=== PATIENT | male | born 2000 | race African-American/Black ===

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

== ENCOUNTER 2020-01-15 15:07 | Emergency (ER) | payer MEDICAID ==
--- NOTE | 2020-01-15 15:36 | ER Document Report ---
ED Medical Screen (RME) - General Chief Complaint: Chest Pain Stated Complaint: CHEST PAIN Time Seen by Provider: 01/15/20 15:33 Primary Care Provider: GRABIEL TRUJILLO DO [Primary Care Provider] - Follow up as needed TRAVEL OUTSIDE OF THE [place] IN LAST 30 DAYS: No - HPI Notes: 01/15/20 15:35 Patient is a 19-year-old male no significant past medical history presents complaining of having intermittent sternal chest pain since last night. Patient states that he currently does not have any pain. He did not have any shortness of breath or dyspnea on exertion associated. The pain did not radiate. Denies drug allergies. No other concerns or complaints. No recent illness. Denies any prolonged immobilization, distance travel, recent surgery/trauma, personal cancer history, hormone use, or previous DVT/PE. Denies [place], fever, neck pain, URI, n/v/d, Abd pain, dysuria, back pain, or rash. I have treated and performed a rapid initial assessment of this patient. A comprehensive ED assessment and evaluation of the patient, analysis of test results and completion of medical decision making process will be conducted by additional ED providers. PHYSICAL EXAMINATION: GENERAL: Well-appearing, well-nourished and in no acute distress. A&Ox4. Answers questions appropriately. LUNGS: Breath sounds clear to auscultation bilaterally and equal. No wheezes rales or rhonchi. HEART: Regular rate and rhythm without murmurs, rubs, gallops. Extremities: No cyanosis, clubbing, or edema b/l. Kym negative bilaterally. No lower extremity asymmetry. NEUROLOGICAL: Normal speech, normal gait. PSYCH: Normal mood, normal affect. - Related Data Allergies/Adverse Reactions: No Known Allergies Allergy (Verified 03/05/18 08:13) Past Medical History - Past Medical History Cardiac Medical History: Denies: Hx Atrial Fibrillation, Hx Congestive Heart Failure, Hx Coronary Artery Disease, Hx DVT, Hx Heart Attack, Hx Hypercholesterolemia, Hx Hypertension, Hx Peripheral Vascular Disease, Hx Pulmonary Embolism, Hx Heart Murmur Pulmonary Medical History: Denies: Hx Asthma, Hx Bronchitis, Hx COPD, Hx Pneumonia, Hx Intubation, Hx Respiratory Failure, Hx Sleep Apnea, Hx Tuberculosis Neurological Medical History: Denies: Hx Cerebrovascular Accident, Hx Migraine, Hx Seizures Endocrine Medical History: Denies: Hx Diabetes Mellitus Type 1, Hx Diabetes Mellitus Type 2, Hx Graves' Disease, Hx Hyperthyroidism, Hx Hypothyroidism Renal/ Medical History: Denies: Hx Peritoneal Dialysis Musculoskeltal Medical History: Denies Hx Arthritis - Immunizations Immunizations up to date: Yes Hx Diphtheria, Pertussis, Tetanus Vaccination: Yes Physical Exam - Vital signs Vitals: Temp Pulse Resp BP Pulse Ox 97.7 F 77 18 134/66 H 100 01/15/20 15:28 01/15/20 15:28 01/15/20 15:01/15/20 15:01/15/20 15:28 Course - Vital Signs Vital signs: Temp Pulse Resp BP Pulse Ox 97.7 F 77 18 134/66 H 100 01/15/20 15:28 01/15/20 15:28 01/15/20 15:28 01/15/20 15:28 01/15/20 15:28 Doctor's Discharge - Discharge Referrals: GRABIEL TRUJILLO DO [Primary Care Provider] - Follow up as needed
--- NOTE | 2020-01-15 16:19 | ER Document Report ---
ED General - General Chief Complaint: Chest Pain Stated Complaint: CHEST PAIN Time Seen by Provider: 01/15/20 15:33 Primary Care Provider: GRABIEL TRUJILLO DO [Primary Care Provider] - Follow up as needed Mode of Arrival: Ambulatory Information source: Patient Notes: 19-year-old male presented to ED for intermittent sharp chest pain in the center of the upper chest the last about 2 to 3 seconds at a time since yesterday. He states he does not have any shortness of breath does not have any symptoms except for this sharp substernal pain. At the moment of this exam he does not have any pain at all denies any shortness of breath difficulty breathing and the pain does not radiate anywhere. His only concern is that he is a liver transplant patient. 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 He denies any nausea vomiting cough congestion neck pain headache any other pain. He is alert oriented respirations regular n onlabored speaking in full sentences walks with even steady gait. TRAVEL OUTSIDE OF THE [place] IN LAST 30 DAYS: No - HPI Onset: Yesterday Onset/Duration: Intermittent Quality of pain: Sharp - Very brief Severity: None Pain Level: Denies Associated symptoms: Chest pain - Very brief 3 seconds or less periods of sharp pain intermittently from yesterday to today. denies: Body/muscle aches, Chills, Nonproductive cough, Productive cough, Fever, Nausea, Vomiting, Rhinnorhea, Sinus pain/drainage, Shortness of breath, Sore throat Exacerbated by: Denies Relieved by: Denies Similar symptoms previously: No Recently seen / treated by doctor: Yes - Related Data Allergies/Adverse Reactions: No Known Allergies Allergy (Verified 01/15/20 15:35) Home Medications: prograft. mifort Past Medical History - General Information source: Patient - Social History Smoking Status: Never Smoker Chew tobacco use (# tins/day): No Frequency of alcohol use: None Drug Abuse: None Lives with: Family Family History: None, Reviewed & Not Pertinent Patient has suicidal ideation: No Patient has homicidal ideation: No - Past Medical History Cardiac Medical History: Reports: None Pulmonary Medical History: Reports: None Neurological Medical History: Reports: None Endocrine Medical History: Reports: None Renal/ Medical History: Reports: None Malignancy Medical History: Reports None GI Medical History: Reports: Other - Urea cycle disorder liver transplant Musculoskeletal Medical History: Reports None Skin Medical History: Reports None Psychiatric Medical History: Reports: None Traumatic Medical History: Reports: None Infectious Medical History: Reports: None Past Surgical History: Reports: Other - Liver transplant - Immunizations Immunizations up to date: Yes Hx Diphtheria, Pertussis, Tetanus Vaccination: Yes Review of Systems - Review of Systems Constitutional: No symptoms reported Cardiovascular: Chest pain. denies: Palpitations, Heart racing, Orthopnea, Dyspnea, Syncope, Dizziness, Lightheaded Respiratory: No symptoms reported Gastrointestinal: No symptoms reported Genitourinary: No symptoms reported Male Genitourinary: No symptoms reported Musculoskeletal: No symptoms reported Skin: No symptoms reported Hematologic/Lymphatic: No symptoms reported Neurological/Psychological: No symptoms reported -: Yes All other systems reviewed and negative Physical Exam - Vital signs Vitals: Temp Pulse Resp BP Pulse Ox 97.7 F 77 18 134/66 H 100 01/15/20 15:28 01/15/20 15:28 01/15/20 15:28 01/15/20 15:28 01/15/20 15:28 Interpretation: Normal - General General appearance: Appears well, Alert - HEENT Head: Normocephalic, Atraumatic Eyes: Normal Pupils: PERRL - Respiratory Respiratory status: No respiratory distress Chest status: Nontender Breath sounds: Normal Chest palpation: Normal - Cardiovascular Rhythm: Regular Heart sounds: Normal auscultation Murmur: No Notes: No chest pain at this time patient does have a large scar from his liver transplant just below his chest area with implanted port to the left chest - Abdominal Inspection: Normal Distension: No distension Bowel sounds: Normal Tenderness: Nontender Organomegaly: No organomegaly - Back Back: Normal, Nontender - Extremities General upper extremity: Normal inspection, Nontender, Normal color, Normal ROM, Normal temperature General lower extremity: Normal inspection, Nontender, Normal color, Normal ROM, Normal temperature, Normal weight bearing. No: Kym's sign - Neurological Neuro grossly intact: Yes Cognition: Normal Orientation: AAOx4 Shikha Coma Scale Eye Opening: Spontaneous [place] Coma Scale Verbal: Oriented [place] Coma Scale Motor: Obeys Commands Shikha Coma Scale Total: 15 Speech: Normal Motor strength normal: LUE, RUE, LLE, RLE Sensory: Normal - Psychological Associated symptoms: Normal affect, Normal mood - Skin Skin Temperature: Warm Skin Moisture: Dry Skin Color: Normal Course - Re-evaluation Re-evalutation: 01/15/20 17:11 Discussed labs EKG and chest x-ray with patient after discussing them with Dr. Guzman. He stated the patient could go home. I did give the patient a copy of the EKG lab results and chest x-ray report. He is to take these to his transplant provider for follow-up. Patient verbalized understanding and agreement with treatment plan and patient was discharged home. - Vital Signs Vital signs: Temp Pulse Resp BP Pulse Ox 97.3 F 79 16 117/75 99 01/15/20 17:03 01/15/20 17:03 01/15/20 17:03 01/15/20 17:03 01/15/20 17:03 - Laboratory Result Diagrams: 01/15/20 16:08 01/15/20 16:08 - Diagnostic Test Radiology reviewed: Image reviewed, Reports reviewed Discharge - Discharge Clinical Impression: Chest pain Qualifiers: Chest pain type: unspecified Qualified Code(s): R07.9 - Chest pain, unspecified Condition: Stable Disposition: HOME, SELF-CARE Additional Instructions: CHEST PAIN OF UNCLEAR CAUSE: The exact cause of your chest pain isn't clear. Fortunately, there is no evidence of a dangerous medical condition. Further testing may be required to find the source of the pain. Most often, we find that this pain is coming from the chest wall -- the muscles or rib joints in the chest. But chest pain can come from the lung and lung lining, the esophagus, the heart valves or heart lining, and even the stomach or gallbladder. Rest. Eat lightly until the pain is gone. We may prescribe medicine for pain and inflammation. You should call the physician immediately if the pain radiates to the shoulder, jaw or arms; if you start to run a fever or develop a cough; or if you develop shortness of breath, or other new or alarming symptoms. NORMAL EXAM AND WORKUP: At this time, your examination and workup show no significant abnormality. No significant abnormal physical findings were noted. All laboratory, EKG, and imaging (x-ray, CT scans, ultrasound) studies that were ordered show no significant abnormality. Although your examination and all studies that were ordered showed no significant abnormal finding, there are no examinations and no studies that are 100% accurate. There is always the possibility that some abnormality could exist and not be detected with physical examination or within the limits and capabilities of laboratory and other studies. You should return or follow up as you were instructed on your visit today for further evaluation if your symptoms do not resolve. CHEST WALL PAIN: Your chest pain may be coming from the chest wall. This is often caused by straining the muscles or joints in the chest during physical activity, direct trauma, coughing, or vigorous vomiting. Persons with arthritis are especially prone to this type of pain, due to inflammation of the cartilage joints near the breast bone. Occasionally, no cause can be found. Rest from strenuous physical activity. This kind of chest pain is usually made worse by movement of the chest. Depending on the symptoms, we may prescribe medicine for pain, muscle relaxation, and antiinflammatory effects. If the pain is new, and seems to be due to muscle strain, cold packs can help. Otherwise, apply gentle warmth to the painful area for 15 minutes every hour or two. You should call contact the doctor immediately if things change. Further evaluation is needed if you develop a fever or cough, if the nature of the pain changes, or if you become short of breath. I have given you a copy of your lab results your EKG and your chest x-ray. Plea se take all these with you to your transplant provider. There is no obvious reasons for your chest pain at this time. There is no cardiac reason for your chest pain. If you continue to have pain or your pain increases in intensity frequency or duration you can always come back to the ER or follow-up with your transplant provider. FOLLOW-UP CARE: If you have been referred to a physician for follow-up care, call the physicians office for an appointment as you were instructed or within the next two days. If you experience worsening or a significant change in your symptoms, notify the physician immediately or return to the Emergency Department at any time for re-evaluation. Forms: Elevated Blood Pressure Referrals: GRABIEL TRUJILLO DO [Primary Care Provider] - Follow up as needed
[2020-01-15 16:20] LABS: ABSOLUTE EOSINOPHILS # (AUTO) 0.1 10^3/uL (0.0-0.6); ABSOLUTE LYMPHOCYTES (AUTO) 2.7 10^3/uL (0.5-4.7); ABSOLUTE MONOCYTES (AUTO) 0.6 10^3/uL (0.1-1.4); BASOPHILS % (AUTO) 0.7 % (0-2); EOSINOPHILS % (AUTO) 1.2 % (0-6); HEMATOCRIT 44.7 % (37.9-51.0); HEMOGLOBIN 15.8 g/dL (13.5-17.0); MEAN CORPUSCULAR HEMOGLOBIN 30.9 pg (27.0-33.4); MEAN CORPUSCULAR HGB CONC 35.3 g/dL (32.0-36.0); MEAN CORPUSCULAR VOLUME 88 fl (80-97); MONOCYTES % (AUTO) 9.2 % (3-13); PLATELET COUNT 193 10^3/uL (150-450); RED CELL DISTRIBUTION WIDTH 12.4 % (11.5-14.0); SEGMENTED NEUTROPHILS % (AUTO) 46.9 % (42-78); TOTAL CELLS COUNTED % (AUTO) 100 %; WHITE BLOOD COUNT 6.3 10^3/uL (4.0-10.5)
[2020-01-15 16:41] LABS: ALBUMIN 4.5 g/dL (3.7-5.6); ALKALINE PHOSPHATASE 135 U/L (65-260); ANION GAP 10 (5-19); ASPARTATE AMINO TRANSFERASE 29 U/L (10-45); BILIRUBIN,DIRECT 0.1 mg/dL (0.0-0.4); BILIRUBIN,TOTAL 1.2 mg/dL (0.2-1.3); BLOOD UREA NITROGEN 11 mg/dL (7-20); CALCIUM 9.8 mg/dL (8.4-10.2); CARBON DIOXIDE 29 mmol/L (22-30); CHLORIDE 100 mmol/L (98-107); GLUCOSE 103 mg/dL (75-110); POTASSIUM 4.3 mmol/L (3.6-5.0); TOTAL PROTEIN 7.8 g/dL (6.3-8.2)
--- NOTE | 2020-01-15 16:47 | RADIOLOGY REPORT (SQ) ---
EXAM DESCRIPTION: CHEST 2 VIEWS COMPLETED DATE/TIME: 01/15/2020 4:33 pm REASON FOR STUDY: CP COMPARISON: 07/22/2017 EXAM PARAMETERS: NUMBER OF VIEWS: two views TECHNIQUE: Digital Frontal and Lateral radiographic views of the chest acquired. RADIATION DOSE: NA LIMITATIONS: none FINDINGS: LUNGS AND PLEURA: No opacities, masses or pneumothorax. No pleural effusion. MEDIASTINUM AND HILAR STRUCTURES: No masses or contour abnormalities. HEART AND VASCULAR STRUCTURES: Heart normal size. No evidence for failure. BONES: No acute findings. HARDWARE: None in the chest. OTHER: There is a left chest wall injection catheter placed. Needle is placed in the port IMPRESSION: NO ACUTE RADIOGRAPHIC FINDING IN THE CHEST. TECHNICAL DOCUMENTATION: JOB ID: [id number] 2010 [employer]- All Rights Reserved Reading location - IP/workstation name: [email or web address]
[2020-01-15 17:04] VITALS: BP 117/75
--- NOTE | 2020-01-15 17:32 | EKG REPORT ---
SEVERITY:- NORMAL ECG - SINUS RHYTHM : Confirmed by: Eda Huber MD 15-Jan-2020 17:31:43
== END 2020-01-15 17:17 | disposition home or self-care (01) ==
LOC: ER 15:07
DX: R07.2 Precordial pain (principal); Z94.4 Liver transplant status; Z79.899 Other long term (current) drug therapy
CPT/HCPCS: 93005; 99285; 36415; 85025; 80053; 84484; 71046; 93010; J1642

== ENCOUNTER 2020-03-13 14:26 | Emergency (ER) | payer MEDICAID ==
--- NOTE | 2020-03-13 15:04 | ER Document Report ---
ED Medical Screen (RME) - General Chief Complaint: Jaundice Stated Complaint: POSSIBLE JAUNDICE Time Seen by Provider: 03/13/20 14:37 Primary Care Provider: GRABIEL TRUJILLO DO [Primary Care Provider] - Follow up as needed TRAVEL OUTSIDE OF THE [place] IN LAST 30 DAYS: No - Related Data Allergies/Adverse Reactions: No Known Allergies Allergy (Verified 01/15/20 15:35) Past Medical History - Past Medical History Cardiac Medical History: Denies: Hx Atrial Fibrillation, Hx Congestive Heart Failure, Hx Coronary Artery Disease, Hx DVT, Hx Heart Attack, Hx Hypercholesterolemia, Hx Hypertension, Hx Peripheral Vascular Disease, Hx Pulmonary Embolism, Hx Heart Murmur Pulmonary Medical History: Denies: Hx Asthma, Hx Bronchitis, Hx COPD, Hx Pneumonia, Hx Intubation, Hx Respiratory Failure, Hx Sleep Apnea, Hx Tuberculosis Neurological Medical History: Denies: Hx Cerebrovascular Accident, Hx Migraine, Hx Seizures Endocrine Medical History: Denies: Hx Diabetes Mellitus Type 1, Hx Diabetes Mellitus Type 2, Hx Graves' Disease, Hx Hyperthyroidism, Hx Hypothyroidism Renal/ Medical History: Denies: Hx Peritoneal Dialysis Musculoskeltal Medical History: Denies Hx Arthritis Past Surgical History: Reports: Other - Liver transplant - Immunizations Immunizations up to date: Yes Hx Diphtheria, Pertussis, Tetanus Vaccination: Yes Physical Exam - Vital signs Vitals: Temp Pulse Resp BP Pulse Ox 97.7 F 90 16 105/71 97 03/13/20 14:42 03/13/20 14:42 03/13/20 14:42 03/13/20 14:42 03/13/20 14:42 Course - Vital Signs Vital signs: Temp Pulse Resp BP Pulse Ox 97.7 F 90 16 105/71 97 03/13/20 14:42 03/13/20 14:42 03/13/20 14:42 03/13/20 14:42 03/13/20 14:42 Doctor's Discharge - Discharge Referrals: GRABIEL TRUJILLO DO [Primary Care Provider] - Follow up as needed
--- NOTE | 2020-03-13 15:10 | ER Document Report ---
ED General - General Chief Complaint: Jaundice Stated Complaint: POSSIBLE JAUNDICE Time Seen by Provider: 03/13/20 14:37 Primary Care Provider: GRABIEL TRUJILLO DO [Primary Care Provider] - Follow up as needed Information source: Patient Notes: 19-year-old male past medical history significant for liver transplant in April 2018 that was performed at [facility] in [place] due to metabolic disorder presents to the emergency room complaining of dark-colored urine for 2 days today he noticed that his eyes were yellow. He denies any nausea no vomiting, abdominal pain. States he is compliant with his medications as labs checked every month which he believes have been normal. Unsure when his last visit was at [facility]. He thinks approximately 2 to 3 months ago. Denies any new medications, no new foods, nobody else at home is ill. TRAVEL OUTSIDE OF THE [place] IN LAST 30 DAYS: No - HPI Onset: This morning Onset/Duration: Sudden Quality of pain: No pain - Related Data Allergies/Adverse Reactions: No Known Allergies Allergy (Verified 01/15/20 15:35) Past Medical History - General Information source: Patient - Social History Smoking Status: Never Smoker Frequency of alcohol use: None Drug Abuse: None Lives with: Family Family History: None, Reviewed & Not Pertinent Patient has suicidal ideation: No Patient has homicidal ideation: No - Past Medical History Cardiac Medical History: Denies: Hx Atrial Fibrillation, Hx Congestive Heart Failure, Hx Coronary Artery Disease, Hx DVT, Hx Heart Attack, Hx Hypercholesterolemia, Hx Hypertensio n, Hx Peripheral Vascular Disease, Hx Pulmonary Embolism, Hx Heart Murmur Pulmonary Medical History: Denies: Hx Asthma, Hx Bronchitis, Hx COPD, Hx Pneumonia, Hx Intubation, Hx Respiratory Failure, Hx Sleep Apnea, Hx Tuberculosis Neurological Medical History: Denies: Hx Cerebrovascular Accident, Hx Migraine, Hx Seizures Endocrine Medical History: Denies: Hx Diabetes Mellitus Type 1, Hx Diabetes Mellitus Type 2, Hx Graves' Disease, Hx Hyperthyroidism, Hx Hypothyroidism Renal/ Medical History: Reports: Other - Liver transplant April 2018. Denies: Hx Peritoneal Dialysis Musculoskeletal Medical History: Denies Hx Arthritis Past Surgical History: Reports: Other - Liver transplant - Immunizations Immunizations up to date: Yes Hx Diphtheria, Pertussis, Tetanus Vaccination: Yes Review of Systems - Review of Systems Constitutional: No symptoms reported EENT: See HPI, Other - Scleral icterus Cardiovascular: No symptoms reported Respiratory: No symptoms reported Gastrointestinal: No symptoms reported Genitourinary: Other - Discolored urine Musculoskeletal: No symptoms reported Skin: No symptoms reported Hematologic/Lymphatic: No symptoms reported Neurological/Psychological: No symptoms reported -: Yes All other systems reviewed and negative Physical Exam - Vital signs Vitals: Temp Pulse Resp BP Pulse Ox 97.7 F 90 16 105/71 97 03/13/20 14:42 03/13/20 14:42 03/13/20 14:42 03/13/20 14:42 03/13/20 14:42 - General General appearance: Alert In distress: Mild - HEENT Eyes: Scleral icterus Conjunctiva: Icteric Pupils: PERRL Neck: Normal - Respiratory Respiratory status: No respiratory distress Chest status: Nontender Breath sounds: Normal Chest palpation: Normal - Cardiovascular Rhythm: Regular Heart sounds: Normal auscultation Murmur: No - Abdominal Inspection: Normal Distension: No distension Bowel sounds: Normal Tenderness: Nontender Organomegaly: No organomegaly - Back Back: Normal, Nontender - Neurological Neuro grossly intact: Yes Cognition: Normal Orientation: AAOx4 Shikha Coma Scale Eye Opening: Spontaneous [place] Coma Scale Verbal: Oriented [place] Coma Scale Motor: Obeys Commands [place] Coma Scale Total: 15 Speech: Normal Motor strength normal: LUE, RUE, LLE, RLE Sensory: Normal - Skin Skin Temperature: Warm Skin Moisture: Dry Skin Color: Normal Course - Re-evaluation Re-evalutation: 03/13/20 [address] Aranda at [facility] through the transfer center who accepts patient. Would like patient transferred to ED to ED. Spoke with ED physician Dr. Hill who accepts patient in transfer. Discussed all lab test results and ultrasound findings with patient. He is aware of need for transfer. Patient is agreeable to transfer. 03/13/20 18:32 Patient is resting comfortably he remains pain-free. Patient is stable to be transferred EMS on scene for transfer. - Vital Signs Vital signs: Temp Pulse Resp BP Pulse Ox 97.5 F 64 16 115/67 100 03/13/20 18:29 03/13/20 18:29 03/13/20 18:29 03/13/20 18:29 03/13/20 18:29 - Laboratory Result Diagrams: 03/13/20 15:15 04/27/20 15:15 Laboratory results interpreted by me: 03/13/20 03/13/20 03/13/20 15:15 15:15 15:15 [place] % (Auto) 14.8 H Eos % (Auto) 12.8 H Absolute Eos (auto) 1.0 H PT 15.7 H APTT 86.6 H Sodium 133.9 L Chloride 97 L Glucose 116 H Total Bilirubin 18.6 H Direct Bilirubin 15.7 H AST 2392 H ALT 2195 H Alkaline Phosphatase 434 H Amylase Urine Protein Urine Glucose (UA) Urine Blood Urine Bilirubin Urine Urobilinogen 03/13/20 03/13/20 15:15 15:15 [place] % (Auto) Eos % (Auto) Absolute Eos (auto) PT APTT Sodium Chloride Glucose Total Bilirubin Direct Bilirubin AST ALT Alkaline Phosphatase Amylase 119 H Urine Protein 100 H Urine Glucose (UA) 50 H Urine Blood SMALL H Urine Bilirubin MODERATE H Urine Urobilinogen 4.0 H Discharge - Discharge Clinical Impression: Jaundice, Abnormal liver function test Condition: Stable Disposition: [place] Referrals: GRABIEL TRUJILLO DO [Primary Care Provider] - Follow up as needed
[2020-03-13 15:38] LABS: ABSOLUTE LYMPHOCYTES (AUTO) 1.3 10^3/uL (0.5-4.7); ABSOLUTE MONOCYTES (AUTO) 1.1 10^3/uL (0.1-1.4); ABSOLUTE NEUT (AUTO) 4.1 10^3/uL (1.7-8.2); BASOPHILS % (AUTO) 0.6 % (0-2); EOSINOPHILS % (AUTO) 12.8 % (0-6); HEMATOCRIT 47.7 % (37.9-51.0); HEMOGLOBIN 16.6 g/dL (13.5-17.0); MEAN CORPUSCULAR HEMOGLOBIN 30.9 pg (27.0-33.4); MEAN CORPUSCULAR HGB CONC 34.8 g/dL (32.0-36.0); MEAN CORPUSCULAR VOLUME 89 fl (80-97); MONOCYTES % (AUTO) 14.8 % (3-13); PLATELET COUNT 228 10^3/uL (150-450); RED BLOOD COUNT 5.36 10^6/uL (4.35-5.55); RED CELL DISTRIBUTION WIDTH 13.8 % (11.5-14.0); SEGMENTED NEUTROPHILS % (AUTO) 54.8 % (42-78); TOTAL CELLS COUNTED % (AUTO) 100 %; WHITE BLOOD COUNT 7.5 10^3/uL (4.0-10.5)
[2020-03-13 15:40] LABS: APPEARANCE,URINE SLIGHTLY-CLOUDY; BILIRUBIN,URINE MODERATE (NEGATIVE); COLOR,URINE AMBER; GLUCOSE, URINE 50 mg/dL (NEGATIVE); KETONES,URINE NEGATIVE (NEGATIVE); LEUKOCYTE ESTERASE,URINE NEGATIVE (NEGATIVE); NITRITE,URINE NEGATIVE (NEGATIVE); PROTEIN,URINE 100 mg/dL (NEGATIVE); URINE SPECIFIC GRAVITY 1.031
[2020-03-13 15:45] LABS: INTERNATIONAL RATION (INR) 1.24; PROTHROMBIN TIME 15.7 SEC (11.4-15.4)
[2020-03-13 15:47] LABS: PARTIAL THROMBOPLASTIN TIME 86.6 SEC (23.5-35.8)
[2020-03-13 15:59] LABS: ALBUMIN 3.9 g/dL (3.7-5.6); ALKALINE PHOSPHATASE 434 U/L (65-260); ANION GAP 7 (5-19); BILIRUBIN,DIRECT 15.7 mg/dL (0.0-0.4); BILIRUBIN,TOTAL 18.6 mg/dL (0.2-1.3); BLOOD UREA NITROGEN 12 mg/dL (7-20); CALCIUM 9.2 mg/dL (8.4-10.2); CARBON DIOXIDE 30 mmol/L (22-30); CHLORIDE 97 mmol/L (98-107); GLUCOSE 116 mg/dL (75-110); POTASSIUM 4.4 mmol/L (3.6-5.0); TOTAL PROTEIN 7.7 g/dL (6.3-8.2)
[2020-03-13 16:18] LABS: ASPARTATE AMINO TRANSFERASE 2392 U/L (10-45)
--- NOTE | 2020-03-13 17:02 | RADIOLOGY REPORT (SQ) ---
EXAM DESCRIPTION: U/S ABDOMEN COMPLETE W/DOPPLER IMAGES COMPLETED DATE/TIME: 03/13/2020 4:36 pm REASON FOR STUDY: liver transplant/ jaundice COMPARISON: None. TECHNIQUE: Dynamic and static grayscale images acquired of the abdomen and recorded on PACS. Additio nal selected color Doppler and spectral images recorded. Note: Study does not meet criteria for complete doppler/duplex scan LIMITATIONS: None. FINDINGS: PANCREAS: The visualized portions of the pancreas appear normal. LIVER: No masses. Echotexture normal. LIVER VASCULATURE: Hepatopetal directional flow within the portal veins. The hepatic veins are paten t. GALLBLADDER: There is an tubular hypoechoic structure in the gallbladder fossa. ULTRASOUND-DETECTED RIDDLE'S SIGN: Negative. INTRAHEPATIC DUCTS AND COMMON DUCT: The common bile duct measures 1.9 mm in diameter. INFERIOR VENA CAVA: Patent. AORTA: No aneurysm. RIGHT KIDNEY: The right kidney measures 10.2 cm in length. There is no hydronephrosis. LEFT KIDNEY: The left kidney measures 10.2 cm in length. There is no hydronephrosis. SPLEEN: The spleen measures 9.7 cm in length. PERITONEAL AND PLEURAL SPACES: There is a trace amount of free fluid in Morison's pouch. OTHER: No other finding. IMPRESSION: 1. Self reported history of liver transplant. There is a tubular hypoechoic structure i n the gallbladder fossa that could represent a dilated duct since it is uncommon to retain the gallbl adder in an allograft. The hepatic vasculature (including the hepatic artery) is patent. If indicat ed further correlation with a MRI/MRCP could be obtained. 2. No hydronephrosis. 3. No splenomegaly. 4. Trace amount of free fluid in Morison's pouch. TECHNICAL DOCUMENTATION: JOB ID: [id number] [employer]- All Rights Reserved Reading location - IP/workstation name: [email or web address]
[2020-03-13 18:34] VITALS: BP 115/67
== END 2020-03-13 18:40 | disposition short-term general hospital (02) ==
LOC: ER 14:26
DX: R17 Unspecified jaundice (principal); R94.5 Abnormal results of liver function studies; R39.198 Other difficulties with micturition
CPT/HCPCS: 36415; 76700; 80053; 81001; 82150; 83690; 85025; 85610; 85730; 87040; 93976; 99285

== ENCOUNTER → 2020-05-18 | Outpatient (CLI) | payer MEDICAID | LOC: OD 16:28 | PROVIDERS: ATTEND Internal Medicine | DX: Z01.812 Encounter for preprocedural laboratory examination (principal); Z94.4 Liver transplant status; Z79.899 Other long term (current) drug therapy ==

== ENCOUNTER → 2020-05-23 | Outpatient (CLI) | payer MEDICAID | LOC: OD 14:08 | PROVIDERS: ATTEND Internal Medicine | DX: Z94.4 Liver transplant status (principal); Z79.899 Other long term (current) drug therapy | CPT/HCPCS: 87635; C9803 ==